=== PATIENT | male | born 1955 | race Two or more races ===

== ENCOUNTER 2021-09-06 16:04 | Emergency (ER) | payer OTHER, MEDICAID ==
[~2021-09-06] VITALS: Ht 165.1 cm; Wt 86.2 kg
[~2021-09-06 16:04] MED LIST: ASPI81CH43; CLOP75TA70; LISI-275; METO1TAB9 PO; NITR0.4S31; SIMV-13 PO
[2021-09-06] MEDS ORDERED: traMADol HCL 50 MG TAB PO ONE (18:15)
[2021-09-06 18:47] VITALS: BP 125/89
== END 2021-09-06 18:53 | disposition home or self-care (01) ==
LOC: ER 16:04
DX: S52.602A Unspecified fracture of lower end of left ulna, initial encounter for closed fracture (principal); I25.2 Old myocardial infarction; I10 Essential (primary) hypertension; E78.5 Hyperlipidemia, unspecified; Z79.82 Long term (current) use of aspirin; Z79.01 Long term (current) use of anticoagulants; Z79.899 Other long term (current) drug therapy; X58.XXXA Exposure to other specified factors, initial encounter; Y93.89 Activity, other specified; Y92.89 Other specified places as the place of occurrence of the external cause; Y99.8 Other external cause status
CPT/HCPCS: 29125; 73110; 73130